=== PATIENT | female | born 2000 | race Caucasian/White ===

== ENCOUNTER 2024-04-03 10:23 | Inpatient (IN) ==
[2024-04-03] MEDS ORDERED: ACETAMINOPHEN 325 MG TAB PO PRN (11:41)
[2024-04-03] MEDS ORDERED: LIDOCAINE 1% LOCAL 20 ML VIAL INFIL PRN (11:41)
[2024-04-03] MEDS ORDERED: OXYTOCIN 30 UNITS/NSS 30 UNITS/500 ML BAG IV PRN (11:41)
[2024-04-03] MEDS ORDERED: CALCIUM CARBONATE 500 MG CHEWABLE TAB PO PRN (11:41)
[2024-04-03 11:51] LABS: Amphetamines+Metham, Urine Neg (Neg); Barbiturates, Urine Neg (Neg); Benzodiazepine, Urine Neg (Neg); Cocaine, Urine Neg (Neg); Fentanyl, Urine Neg (Neg); MDMA (Ecstacy), Urine Neg (Neg); Marijuana, Urine Neg (Neg); Methadone, Urine Neg (Neg); Opiate, Urine Neg (Neg); Phencyclidine, Urine Neg (Neg)
[2024-04-03] MEDS: miSOPROStoL 50 MCG TAB PO ONE ×2 (11:56→16:13)
[2024-04-03 12:42] LABS: Hemoglobin 12.3 g/dl (12.0-16.0); Mean Corpuscular Hemoglobin 28.9 pg (25.0-34.0); Mean Corpuscular Hgb Conc 33.2 g/dL (32.0-36.0); Mean Corpuscular Volume 87.1 fL (80.0-100.0); Mean Platelet Volume 11.1 fL (9.4-12.4); Platelet Count 253 K/uL (130-400); RDW Standard Deviation 51.2 fL (36.4-46.3); Red Blood Count 4.25 M/uL (4.20-5.40); White Blood Count 6.82 K/ul (4.8-10.8)
--- OUTSIDE RECORDS SUMMARY | 2024-04-03 13:27 | External Medical Summary | Summary of Care ---
Author Name Unknown Organization [facility] Address [address] [place] [address] Phone [phone] Care Team Providers Care Leaf Conditioner Helper Name Role Phone Pepper Martinez MD Primary Care Provide r Reason for Visit * Reason Onset Date Comments Advice 04/01/2024 Encounter Details Date Type Department Care Team ([facility] st Contact Info) Description 04/01/2024 Telephone [facility] [address] [place] [address] Deirdre Wong MD [address] [place], [place] [id number] Advice Allergies No known active allergiesdocumented as of this encounter (statuses as of 04/01/2024) Medications Medication Sig Dispensed Refills Start Date End Date Status Promethazine HCl 25 MG Rectal Suppository (Phenergan)Indicati ons:Nausea and vomiting during Administer 1 Suppository into the rectum 2 times a day as needed for Nausea. 12 Each 08/24/2023 Active Additional Information Patient not taking.Reported on 10/16/2023 Cyanocobalamin 1000 MCG Oral Capsule Take 1 Capsule by mouth every evening. 30 Capsule 4 01/10/2024 Active Vitamin B-12 1000 MCG Oral Tablet (Cyanocobalamin) Take 1 Tablet by mouth in the morning. 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 Iron deficiency anemia 01/24/2024 Antepartum anemia complicating 024 Overview: Hgb 10.5 at 28 weeks B12 low and ferrtin low Pt to start PO vitamin B12 and referral for IV iron Rubella non-immune status, antepartum 08/23/2023 Encounter for supervision of normal first in first trimester 08/23/2023 Obesity in , antepartum 08/23/2023 Overview: Pre-gravid BMI 32.81 Early gtt ordered Allergic rhinitis 11/07/2012 Estimated Date of Delivery Comme nts Yes 03/31/2024 Based on Ultraso und documented as of this encounter (statuses as of 04/01/2024) Immunizations Name Administration Dates Next Due DTaP Dipth/Tet/Acell Pertussis (Infanrix), Peds 12/29/2006,01/01/2003,10/30/2002,04/12,2001 HIB PRP-T, 4 Dose, PF, IM (H iberix, ActHib) 01/01/2003,10/30/2002,04/05/2002,11/12 Hepatitis A, Ped/Adol., 18 y ear and below, 2-Dose 01/31/2011,12/29/2006 Hepatitis B, 0-19 yrs 01/31/2011,04/05/2002,11/03 IPV - Polio Virus Vaccine (Inact) 2006,01/01/2003,04/05/2002,11/12 MMR - Measles/Mumps/Rubella Vaccine 10/30/2002 MMR-GEOFF - Measles/Mumps/Rubella/Varicella Vaccine 12/29/2006 Meningococcal Conjugate Vacc ine (Menactra/Menveo) 02/19/2018,11/07/2012 Pneumococcal Conjugate Vacci ne, 7 Valent 01/01/2003,04/05/2002 TDAP (age 10 and older)(Boostrix) 01/09/2024,10/2012 Varicella Vaccine (Chicken Pox) 10/31/2007 documented as of this encounter Social History Tobacco Use Types Packs/Day Years Used Date Smoking Tobacco: Former Cigarettes Smokeless Tobacco: Never Alcohol Use Standard Drinks/Week Comments Not Currently 0 (1 standard drink = 0.6 oz pur e alcohol) PHQ-2 Answer Date Recorded PHQ-2 Score 0 04/08/2018 Hunger Vital Sign Answer Date Recorded Within the past 12 months, y ou worried that your food would run out before you got the money to buy more. Never true 11/13/19 24 Within the past 12 months, t he food you bought just didn't last and you didn't have money to get more. Never true 11/13/2023 [place] Depression Scale Answer Date Recorded [place] Depression Scale Total 0 02/23/2024 The thought of harming myself has occurred to me . Never 02/23/2024 Childcare Answer Date Recorded Do you feel overwhelmed with taking care of a child, family member or friend? No 11/13/2023 Does your family need help f inding childcare? (Household - for ages 0-17 years) Not on file 11/13/2023 Clothing Answer Date Recorded Have you been unable to get clothing when it was really needed? No 11/13/2023 Is your family able to get c lothes or diapers when needed? (Household - for ages 0-17 years) Not on file 11/13/2023 Personal Safety Answer Date Recorded Do you feel unsafe or have concerns for your saf ety? No 11/13/2023 Do you have concerns for you r family's safety? (Household - for ages 0-17 years) Not on file 11/13/2023 Utilities Answer Date Recorded Do you have trouble paying y our heating, water, or electric bill? No 11/13/2023 Is your family able to pay t he heat, water, or electric bill? (Household - for ages 0-17 years) Not on file 11/13/2023 Does your family have access to good internet? (Household - for ages 0-17 years) Not on file 11/13/2023 Employment Status Answer Date Recorded Are you unemployed or without regular income? Ye s 11/13/2023 Does the household have a re gular source of income? (Household - for ages 0-17 years) Not on file 11/13/2023 Social Connections Answer Date Recorded How often do you feel lonely or isolated from th ose around you? Never 11/13/2023 Financial Resource Strain Answer Date R ecorded Do you have any trouble payi ng for your medications, or do you think you might in the future? No 11/13/2023 Does your family have troubl e paying for medicine? (Household - for ages 0-17 years) Not on file 11/13/2023 Transportation Needs Answer Date Record ed READ ONLY Do you have troubl e getting a ride to medical visits or work? Never True 11/13/2023 Does your family have a hard time getting a ride to doctors visits? (Household - for ages 0-17 years) Not on file 11/13/2023 Has lack of transportation k ept you from medical appointments, meetings, work, or from getting things needed for daily living? Check all that apply. (Adult - for ages 18 years and over) Not on file 11/13/2023 Do you (or your family) have trouble finding or paying for a ride (transportation)? (Household - for ages 0-17 years) Not on file 11/13/2023 Housing Stability Answer Date Recorded Do you currently live in a s helter or have no steady place to sleep at night? No 11/13/2023 READ ONLY Do you think you a re at risk of becoming homeless? No 11/13/2023 Does your family worry about paying for your home or becoming homeless? (Household - for ages 0-17 years) Not on file 0 11/13/2023 Are you homeless or worried that you might be in the future? (Adult - for ages 18 years and over) Not on file Are you (or your family) daniel eless or worried that you might be in the future? (Household - for ages 0-17 years) Not on file Food Insecurity Answer Date Recorded Do you need food for this week? No 11/13/2023 Are you able to get enough f ood for your family? (Household - for ages 0-17 years) Not on file 11/13/2023 Does your family need food t his week? (Household - for ages 0-17 years) Not on file 11/13/2023 Do you always have enough fo od for your family? (Household - for ages 0-17 years) Not on file 11/13/2023 Estimated Date of Delivery Comme nts Yes 03/31/2024 Based on Ultraso und Sex and Gender Information Value Date Recorded Sex Assigned at Female 08/15/2023 11:08 AM EDT Gender Identity Female 08/15/2023 11:08 AM EDT Sexual Orientation Straight 08/15/2023 11 :08 AM EDT Job Start Date Occupation Industry Not on file Not on file Not on file documented as of this encounter Miscellaneous Notes * Telephone Encounter - Deirdre Wong MD - 04/01/2024 8:28 PM EDT Attempted to call patient twice to return her triage call. Either the calls were disconnected or sent directly to voicemail. Attempted to leave a voicemail if it was recording. Advised patient to call back to triage or call 911 or report to the nearest hospital if this is a medical emergency. documented in this encounter Plan of Treatment Health Maintenance Due Date Last Done Comments HPV (Gardasil) Vaccine (1 - 3-dose series) 2016 Depression Screening 02/19/2019 02/19/2018 Pap Smear 2022 COVID-19 Vaccine ( season) 2024 Influenza Vaccine (FLU shot) (#1) 2024 Gonorrhea / Chlamydia Screen 08/20/2024 08/21/2023, 09/19/2018 DTap/Tdap Vaccines (7 - Td or Tdap) 01/08/2034 01/09/2024, 11/07/2012, 12/29/2006, Additional history exists Hepatitis B Vaccine Completed 01/31/2011, 04/05/2002, 2001 MENINGOCOCCAL (MENACTRA/MENVEO) Completed 02/19/2018, 11/07/2012 Pneumococcal Vaccine: Pediatrics (0 to 5 Years) and At-Risk Patients (6 to 64 Years) Aged Out No longer eligible based on patient's age to complete this topic documented as of this encounter Medical Devices Not on filedocumented as of this encounter Care Teams Leaf Conditioner Helper Relationship Specialty Start Date End Date Pepper Martinez MD PCP - General Family Medicine 11/07/12 documented as of this encounter
--- NOTE | 2024-04-03 20:57 | History & Physical Report ---
Date of Service April 03, 2024 Assessment & Plan (1) Post-term , 40-42 weeks of gestation: Plan Induction of labor Admission and Anticipated Discharge Date Admission Date: April 03, 2024 History of Present Illness Chief Complaint: post term 40 weeks 3 days Primary Care Provider: Pepper Martinez MD Patient's been followed in the office for care and delivery. Well dated with a first trimester ultrasound. Due dates 03/31/2024. Has no problems. Has been treated for anemia during her . She was admitted at 40 weeks and 3 days gestation for induction. This was due to being postterm. On admission she was found to have a reactive NST monitor strip revealed good variability with accelerations. On admission she had a vertex presentation. Cervix posterior 1 cm. Cervix 20% soft. Position was floating. Allergies Allergy/AdvReac Type Severity Reaction Status Date / Time No Known Allergies Allergy Verified 04/03/24 10:54 Home Medications Medication Instructions Recorded Confirmed Type cyanocobalamin (vitamin B-12) 1,000 mcg PO DAILY 04/01/24 04/03/24 History 1,000 mcg tablet vits no.124-ferrous fum 1 tab PO DAILY 04/01/24 04/03/24 History 27 mg iron-folic acid 800 mcg tablet ( Vitamin) Past Med/Surg History Problem List Post-term , 40-42 weeks of gestation False labor after 37 weeks of gestation without delivery No significant past medical history No significant past surgical history Surgical History History of tonsillectomy and adenoidectomy Social History Smoking Status: Current every day smoker Tobacco Type: E-cigarettes / Vaping Second Hand Exposure: No; Do You Dip or Chew Tobacco: No; Tobacco Cessation Education Requested by Patient: No Hx Alcohol Use: No Hx Substance Use: Yes Last Used Substance Other:: prior to Substance Use Type Other:: at beginning of . See note Preferred Language: Icelandic Communication Ability: Effective Hand Straightener Required: No Beliefs That Will Affect Care: None marital status: Single Current Living Situation: Significant Other Other Information That Helps Us Care for You: No Feels Safe at Home: Yes Safety Concerns: Feels Safe At This Time Physical Exam Physical Exam: Patient is well-developed well-nourished 23-year-old white female alert oriented x 3 cooperative no acute distress. Heart had a regular rhythm S1 and S2 are normal. Lungs are clear to auscultation and percussion. Trachea was midline there is no adenopathy or effusion appreciated. Abdomen revealed a gravid uterus with an estimated weight of approximately 7 pounds. There was no abdominal tenderness. There was no flank tenderness. Pelvic exam revealed a vertex presentation floating. Cervix was posterior 1 cm moderately soft. Cervix was about 20% effaced. There was no calf tenderness. Results & Data Results & Data Vital Signs (Past 12 Hours) Vital Signs Temp Pulse Resp BP 04/03/24 20:28 80 124/60 04/03/24 19:05 36.7 C 93 H 18 122/68 04/03/24 16:08 88 128/70 04/03/24 16:06 18 04/03/24 16:06 36.7 C 18 04/03/24 11:58 83 128/64 04/03/24 11:57 16 04/03/24 11:57 36.7 C 16 04/03/24 10:41 93 H 126/59 L 04/03/24 10:37 36.7 C 18
[2024-04-04] MEDS: DINOPROSTONE 10 MG INSERT PV ONE (09:41)
--- NOTE | 2024-04-04 09:45 | Obstetrical Progress Note ---
Date of Service April 04, 2024 Assessment & Plan (1) Post-term , 40-42 weeks of gestation: Present on Admission?: Yes Plan Induction of labor Cervidil placed PV fo cervical ripening Admission and Anticipated Discharge Date Admission Date: April 03, 2024 Subjective pt seen and examined. Pt denies regular uterine contractions. Physical Exam Constitutional: WD/WN, vitals as above Genitourinary: OB Exam Abdomen: + heart tones (140s, Good variability positive accelerations ) and + vertex Manual OB Exam: + cervical dilation 1 cm, + cervical effacement 60% and + station -2 OB Exam Monitor Tracing: + external FHT monitor used, + external uterine monitor used and + category I Results & Data Vital Signs (Past 12 Hours) Vital Signs Temp Pulse Resp BP Pulse Ox 04/04/24 07:20 20 04/04/24 07:20 36.4 C L 20 04/04/24 07:18 80 123/71 04/04/24 06:01 76 110/54 L 04/04/24 06:00 16 04/04/24 06:00 36.6 C 16 04/04/24 05:58 85 91 04/04/24 05:57 102 H 97 04/04/24 05:52 78 96 04/04/24 05:49 83 93 04/04/24 05:47 78 95 04/04/24 05:42 73 95 04/04/24 05:37 76 94 04/04/24 05:33 79 94 04/04/24 05:32 86 95 04/04/24 05:27 76 94 04/04/24 05:22 85 94 04/04/24 05:21 83 94 04/04/24 05:17 85 95 04/04/24 05:12 94 04/04/24 05:12 86 04/04/24 05:12 90 96 04/04/24 03:00 16 04/04/24 03:00 36.6 C 16 04/04/24 02:31 72 112/57 L 04/03/24 23:22 86 105/53 L 04/03/24 23:00 36.6 C
[2024-04-05] MEDS: LACTATED RINGER'S 1,000 ML IV SCH ×3 (00:34→18:01)
[2024-04-05] MEDS ORDERED: OXYTOCIN 30 UNITS/NSS 30 UNITS/500 ML BAG IV SCH (00:45)
[2024-04-05] MEDS: OXYTOCIN 30 UNITS/NSS 30 UNITS/500 ML BAG IV SCH (00:59)
[2024-04-05] MEDS: OXYTOCIN 30 UNITS/NSS 30 UNITS/500 ML BAG IV PRN (00:59)
--- NOTE | 2024-04-05 03:47 | Obstetrical Progress Note ---
Date of Service April 05, 2024 Assessment & Plan (1) Post-term , 40-42 weeks of gestation: Present on Admission?: Yes Plan Induction of labor Continue Pitocin to augment labor pain meds including epidural as the pt desires Admission and Anticipated Discharge Date Admission Date: April 03, 2024 Subjective pt seen and examined. Pt denies regular uterine contractions. Review of Systems Review of Systems: All systems reviewed & are unremarkable except as noted in HPI & below Constitutional: as per Subjective / HPI Physical Exam Constitutional: WD/WN, vitals as above Genitourinary: no vaginal lesions, no adnexal mass OB Exam Abdomen: + heart tones (140s, Good variability positive accelerations ) and + vertex Manual OB Exam: + cervical dilation 3 cm, + cervical effacement 70% and + station -2 OB Exam Monitor Tracing: + external FHT monitor used, + external uterine monitor used and + category I Results & Data Vital Signs (Past 12 Hours) Vital Signs Temp Pulse Resp BP 04/05/24 03:03 71 94/50 L 04/05/24 02:09 83 115/72 04/05/24 01:02 85 108/53 L 04/04/24 23:00 16 04/04/24 23:00 36.6 C 16 04/04/24 22:29 82 124/53 L 04/04/24 19:00 18 04/04/24 19:00 36.7 C 18 04/04/24 18:53 78 119/71 04/04/24 17:08 86 122/66 04/04/24 17:05 18 04/04/24 17:05 36.7 C 18
[2024-04-05] MEDS: BUTORPHANOL TARTRATE 2 MG/ML VIAL IV ONE ×3 (04:22→17:57)
[2024-04-05] MEDS: PENICILLIN GK 6 MU in DEXTROSE 5% 250 ML IV STA (05:45)
[2024-04-05] MEDS: fentANYL 2 MCG/ML BUPIVacaine 0.125%-NSS 100ML BAG ONE (07:30)
[2024-04-05] MEDS: LIDOCAINE 2%/EPINEPHRINE 1:200,000 20 ML PF ONE (07:44)
[2024-04-05] MEDS: BUPIVACAINE 0.25% PF 30 ML VIAL ONE (07:44)
--- NOTE | 2024-04-05 08:04 | Anesthesiology Consultation ---
Date of Service April 05, 2024 Assessment & Plan Chart Review Chart Review: Acceptable Risk for Labor Epidural Consults Requested none History Height/Weight Height: 4 ft 10 in Weight: 83.461 kg Allergies Allergy/AdvReac Type Severity Reaction Status Date / Time No Known Allergies Allergy Verified 04/03/24 10:54 Medications Home Medications Medication Instructions Recorded Confirmed Last Taken cyanocobalamin (vitamin B-12) 1,000 mcg PO DAILY 04/01/24 04/03/24 04/02/24 14:00 1,000 mcg tablet vits no.124-ferrous fum 1 tab PO DAILY 04/01/24 04/03/24 04/02/24 08:00 27 mg iron-folic acid 800 mcg tablet ( Vitamin) Active Medications Generic Name Dose Route Start Last Admin Trade Name Freq PRN Reason Stop Dose Admin Lactated Ringer's 1,000 mls @ 50 mls/hr 04/04/24 23:15 04/05/24 06:07 Lr IV 04/05/24 23:14 999 mls/hr .Q20H NOEL Infusion Oxytocin 30 units in 500 mls @ 8 mls/hr 04/05/24 00:46 04/05/24 04:56 Pitocin 30 Units/Nss IV 04/07/24 00:45 0.48 units/hr .Q24H PRN 8 mls/hr Labor Induction/Augmentation Titration Protocol 0.48 UNITS/HR Past Surgical History Surgical History History of tonsillectomy and adenoidectomy Social History Smoking Status: Current every day smoker Do You Dip or Chew Tobacco: No Hx Alcohol Use: No Hx Substance Use: Yes substance use type: marijuana Substance Use Type Other:: at beginning of . See note Last Used Substance Other:: prior to Physical Exam Vital Signs Last Vital Signs Temp 36.6 C 04/05/24 06:00 Pulse 77 04/05/24 07:59 Resp 18 04/05/24 06:00 BP 122/55 L 04/05/24 07:59 Pulse Ox 95 04/05/24 07:59 Testing Laboratory Results 04/03/24 11:44 Blood Type O Positive 04/03/24 11:41 Antibody Screen NEGATIVE 04/03/24 11:41
[2024-04-05] MEDS ORDERED: LIDOCAINE 2% MPF LOCAL 5 ML VIAL EPI PRN (08:10)
[2024-04-05] MEDS ORDERED: SODIUM CHLORIDE 0.9% PF INJ 10 ML VIAL EPI PRN (08:10)
[2024-04-05] MEDS ORDERED: NALOXONE HCL 1 MG in SODIUM CHLORIDE 0.9% 1,000 ML IV PRN ×2 (08:10→15:52)
[2024-04-05] MEDS ORDERED: ePHEDrine sulfate 50 MG/ML AMP IV PRN ×2 (08:10→15:52)
[2024-04-05] MEDS ORDERED: BUPIVACAINE 0.25% PF 30 ML VIAL EPI PRN (08:10)
[2024-04-05] MEDS ORDERED: fentANYL 2 MCG/ML BUPIVacaine 0.125%-NSS 100ML BAG EPI PRN (08:10)
[2024-04-05] MEDS ORDERED: ROPIVACAINE 0.5% PF 5 MG/ML 20 ML VIAL EPI PRN (08:10)
[2024-04-05] MEDS ORDERED: fentaNYL citrate PF 100 MCG/2 ML VIAL EPI PRN (08:10)
[2024-04-05] MEDS ORDERED: diphenhydrAMINE 50 MG/ML VIAL IV PRN ×2 (08:10→15:52)
[2024-04-05] MEDS ORDERED: NALOXONE HCL 0.4 MG/1 ML VIAL/CARP IV PRN ×2 (08:10→15:52)
[2024-04-05] MEDS ORDERED: NALBUPHINE HCL INJ 10 MG/ML AMP IV PRN ×2 (08:10→15:52)
--- NOTE | 2024-04-05 08:35 | Obstetrical Progress Note ---
Date of Service April 05, 2024 Assessment & Plan Admission and Anticipated Discharge Date Admission Date: April 03, 2024 Subjective Patient seen and examined. She is a 23-year-old at 40 weeks and 4 days of gestation who was admitted on April 03 for induction of labor for postdates. Rate cervical ripening was completed with Cervidil and Cytotec's. Now she had SROM and and having regular contractions, on IV oxytocin at 8miu/min she is comfortable, denies any pain and wants to rest. I reviewed her medical history and records from office. She had ultrasound at 35 weeks and EFW was 48 percentile, Vital signs stable afebrile, heart rate category 1, Vaginal exam, 4-5 cm, 70%, -2, GBS positive, received first dose of penicillin about 3 hours ago, Plan to place Camacho catheter and continue to monitor closely, penicillin for GBS, All questions were answered. Results & Data Vital Signs (Past 12 Hours) Vital Signs Temp Pulse Resp BP Pulse Ox 04/05/24 08:30 71 110/69 04/05/24 08:29 72 99 04/05/24 08:24 74 99 04/05/24 08:19 75 98 04/05/24 08:14 75 98 04/05/24 08:09 75 108/53 L 99 04/05/24 08:04 80 99 04/05/24 07:59 95 04/05/24 07:59 77 04/05/24 07:59 85 122/55 L 04/05/24 07:56 76 125/58 L 04/05/24 07:54 82 97 04/05/24 07:51 75 103/52 L 04/05/24 07:49 82 97 04/05/24 07:44 79 97 04/05/24 07:39 73 97 04/05/24 07:38 71 121/53 L 04/05/24 07:34 82 97 04/05/24 07:29 82 98 04/05/24 07:24 101 H 99 04/05/24 07:19 81 98 04/05/24 07:15 79 92 04/05/24 07:14 78 97 04/05/24 07:09 80 96 04/05/24 07:04 74 96 04/05/24 06:59 97 04/05/24 06:59 76 04/05/24 06:59 76 94 04/05/24 06:54 79 96 04/05/24 06:22 93 H 98 04/05/24 06:17 77 97 04/05/24 06:12 79 97 04/05/24 06:07 79 97 04/05/24 06:04 81 139/64 04/05/24 06:00 18 04/05/24 06:00 36.6 C 18 04/05/24 05:58 83 145/86 H 04/05/24 05:03 77 147/89 H 04/05/24 04:50 83 124/71 04/05/24 04:03 86 125/83 04/05/24 03:50 75 142/80 H 04/05/24 03:03 71 94/50 L 04/05/24 03:00 18 04/05/24 03:00 36.7 C 18 04/05/24 02:09 83 115/72 04/05/24 01:02 85 108/53 L 04/04/24 23:00 16 04/04/24 23:00 36.6 C 16 04/04/24 22:29 82 124/53 L
[2024-04-05] MEDS: PENICILLIN GK 3 MU in DEXTROSE 5% 100 ML IV PRN (09:48)
--- NOTE | 2024-04-05 10:37 | Obstetrical Progress Note ---
Date of Service April 05, 2024 Assessment & Plan Admission and Anticipated Discharge Date Admission Date: April 03, 2024 Subjective Patient is reevaluated for progress in labor FHR had been categ I, ctxs wee to often and the Pitocin was decreased from 8 to 4 miu/ min by her nurse VE: 6/ 70%/ -2, without ans -1 with contraction FHR had a prolonged decel to 70-90's for about 5min Oxytocin was stopped, IVF bolus and nasal O2 started FSE ise placed and recovered to 100-110 and 120's, now at 130's Continue to monitor closely Results & Data Vital Signs (Past 12 Hours) Vital Signs Temp Pulse Resp BP Pulse Ox 04/05/24 10:30 68 130/70 04/05/24 10:29 69 100 04/05/24 10:24 79 100 04/05/24 10:19 79 97 04/05/24 10:15 83 135/74 04/05/24 10:14 79 96 04/05/24 10:09 78 97 04/05/24 10:04 74 97 04/05/24 10:00 68 143/84 H 04/05/24 09:59 77 97 04/05/24 09:54 75 98 04/05/24 09:49 71 98 04/05/24 09:45 74 132/77 04/05/24 09:44 75 98 04/05/24 09:39 70 97 04/05/24 09:34 75 96 04/05/24 09:30 78 129/73 04/05/24 09:29 76 95 04/05/24 09:28 75 94 04/05/24 09:24 75 95 04/05/24 09:19 74 96 04/05/24 09:15 71 125/69 04/05/24 09:14 75 96 04/05/24 09:09 75 96 04/05/24 09:04 76 96 04/05/24 09:01 36.6 C 73 18 122/67 04/05/24 08:59 82 97 04/05/24 08:54 73 97 04/05/24 08:49 74 97 04/05/24 08:45 78 116/60 04/05/24 08:44 81 97 04/05/24 08:39 70 98 04/05/24 08:34 73 96 04/05/24 08:30 71 110/69 04/05/24 08:29 72 99 04/05/24 08:24 74 99 04/05/24 08:19 75 98 04/05/24 08:14 75 98 04/05/24 08:09 75 108/53 L 99 04/05/24 08:04 80 99 04/05/24 07:59 95 04/05/24 07:59 77 04/05/24 07:59 85 122/55 L 04/05/24 07:56 76 125/58 L 04/05/24 07:54 82 97 04/05/24 07:51 75 103/52 L 04/05/24 07:49 82 97 04/05/24 07:44 79 97 04/05/24 07:39 73 97 04/05/24 07:38 36.3 C L 71 16 121/53 L 04/05/24 07:34 82 97 04/05/24 07:29 82 98 04/05/24 07:24 101 H 99 04/05/24 07:19 81 98 04/05/24 07:15 79 92 04/05/24 07:14 78 97 04/05/24 07:09 80 96 04/05/24 07:04 74 96 04/05/24 06:59 97 04/05/24 06:59 76 04/05/24 06:59 76 94 04/05/24 06:54 79 96 04/05/24 06:22 93 H 98 04/05/24 06:17 77 97 04/05/24 06:12 79 97 04/05/24 06:07 79 97 04/05/24 06:04 81 139/64 04/05/24 06:00 18 04/05/24 06:00 36.6 C 18 04/05/24 05:58 83 145/86 H 04/05/24 05:03 77 147/89 H 04/05/24 04:50 83 124/71 04/05/24 04:03 86 125/83 04/05/24 03:50 75 142/80 H 04/05/24 03:03 71 94/50 L 04/05/24 03:00 18 04/05/24 03:00 36.7 C 18 04/05/24 02:09 83 115/72 04/05/24 01:02 85 108/53 L 04/04/24 23:00 16 04/04/24 23:00 36.6 C 16
--- NOTE | 2024-04-05 14:17 | Obstetrical Progress Note ---
Date of Service April 05, 2024 Assessment & Plan Admission and Anticipated Discharge Date Admission Date: April 03, 2024 Subjective Patient is reevaluated. She has been resting has no complaints. After heart rate decelerations at 10:30 AM Pitocin was stopped. heart rate was category 1 for a while and then Pitocin was restarted and increased to 4 minutes initiated per minute. heart rate had another episode of late deceleration and it was stopped. It had been between category 1 to category 2. VE: unchanged, cervix is 6 cm dilated, 80% effaced, head is still high at -1, discussed the findings and recommended primary delivery due to ongoing intolerance to oxytocin and arrest of dilatation active phase of labor. Patient desires to talk to her mom and her partner and make a decision. heart rate is now 130s with minimal to moderate variability. Continue to monitor closely Results & Data Vital Signs (Past 12 Hours) Vital Signs Temp Pulse Resp BP Pulse Ox 04/05/24 14:09 76 97 04/05/24 14:04 86 95 04/05/24 14:00 80 115/65 04/05/24 13:59 77 96 04/05/24 13:54 78 95 04/05/24 13:49 79 96 04/05/24 13:44 78 113/58 L 96 04/05/24 13:39 78 96 04/05/24 13:34 76 96 04/05/24 13:30 80 129/68 04/05/24 13:29 75 96 04/05/24 13:24 82 96 04/05/24 13:22 18 04/05/24 13:22 36.8 C 18 04/05/24 13:19 97 H 97 04/05/24 13:17 83 102/55 L 04/05/24 13:15 77 103/55 L 04/05/24 13:14 76 96 04/05/24 13:09 72 96 04/05/24 13:04 74 96 04/05/24 13:00 71 121/56 L 04/05/24 12:59 71 98 04/05/24 12:54 71 97 04/05/24 12:49 75 97 04/05/24 12:45 71 114/63 04/05/24 12:44 71 97 04/05/24 12:39 80 97 04/05/24 12:34 81 96 04/05/24 12:29 85 120/63 96 04/05/24 12:24 83 95 04/05/24 12:19 85 97 04/05/24 12:16 80 111/64 04/05/24 12:14 85 97 04/05/24 12:09 82 98 04/05/24 12:04 78 97 04/05/24 12:00 78 123/73 04/05/24 11:59 87 98 04/05/24 11:54 96 H 98 04/05/24 11:49 82 97 04/05/24 11:45 85 115/73 04/05/24 11:44 82 97 04/05/24 11:39 80 97 04/05/24 11:34 97 H 97 04/05/24 11:29 85 98 04/05/24 11:24 81 96 04/05/24 11:19 73 97 04/05/24 11:16 78 136/76 04/05/24 11:14 87 98 04/05/24 11:09 79 97 04/05/24 11:04 78 98 04/05/24 11:01 36.7 C 78 18 111/73 04/05/24 11:00 16 04/05/24 11:00 36.7 C 16 04/05/24 10:59 81 98 04/05/24 10:54 94 H 97 04/05/24 10:49 73 98 04/05/24 10:45 71 133/80 04/05/24 10:44 77 98 04/05/24 10:39 80 99 04/05/24 10:34 72 100 04/05/24 10:30 68 130/70 04/05/24 10:29 69 100 04/05/24 10:24 79 100 04/05/24 10:19 79 97 04/05/24 10:15 83 135/74 04/05/24 10:14 79 96 04/05/24 10:09 78 97 04/05/24 10:04 74 97 04/05/24 10:00 68 143/84 H 04/05/24 09:59 77 97 04/05/24 09:54 75 98 04/05/24 09:49 71 98 04/05/24 09:45 74 132/77 04/05/24 09:44 75 98 04/05/24 09:39 70 97 04/05/24 09:34 75 96 04/05/24 09:30 78 129/73 04/05/24 09:29 76 95 04/05/24 09:28 75 94 04/05/24 09:24 75 95 04/05/24 09:19 74 96 04/05/24 09:15 71 125/69 04/05/24 09:14 75 96 04/05/24 09:09 75 96 04/05/24 09:04 76 96 04/05/24 09:01 36.6 C 73 18 122/67 04/05/24 08:59 82 97 04/05/24 08:54 73 97 04/05/24 08:49 74 97 04/05/24 08:45 78 116/60 04/05/24 08:44 81 97 04/05/24 08:39 70 98 04/05/24 08:34 73 96 04/05/24 08:30 71 110/69 04/05/24 08:29 72 99 04/05/24 08:24 74 99 04/05/24 08:19 75 98 04/05/24 08:14 75 98 04/05/24 08:09 75 108/53 L 99 04/05/24 08:04 80 99 04/05/24 07:59 95 04/05/24 07:59 77 04/05/24 07:59 85 122/55 L 04/05/24 07:56 76 125/58 L 04/05/24 07:54 82 97 04/05/24 07:51 75 103/52 L 04/05/24 07:49 82 97 04/05/24 07:44 79 97 04/05/24 07:39 73 97 04/05/24 07:38 36.3 C L 71 16 121/53 L 04/05/24 07:34 82 97 04/05/24 07:29 82 98 04/05/24 07:24 101 H 99 04/05/24 07:19 81 98 04/05/24 07:15 79 92 04/05/24 07:14 78 97 04/05/24 07:09 80 96 04/05/24 07:04 74 96 04/05/24 06:59 97 04/05/24 06:59 76 11/01/24 06:59 76 94 04/05/24 06:54 79 96 04/05/24 06:22 93 H 98 04/05/24 06:17 77 97 04/05/24 06:12 79 97 04/05/24 06:07 79 97 04/05/24 06:04 81 139/64 04/05/24 06:00 18 04/05/24 06:00 36.6 C 18 04/05/24 05:58 83 145/86 H 04/05/24 05:03 77 147/89 H 04/05/24 04:50 83 124/71 04/05/24 04:03 86 125/83 04/05/24 03:50 75 142/80 H 04/05/24 03:03 71 94/50 L 04/05/24 03:00 18 04/05/24 03:00 36.7 C 18
--- NOTE | 2024-04-05 14:47 | Obstetrical Progress Note ---
Date of Service April 05, 2024 Assessment & Plan Admission and Anticipated Discharge Date Admission Date: April 03, 2024 Subjective Patient decided for Csection. Patient understands C section is a major surgery, with risks including but not limited to bleeding , infection, injury to surrounding organs like bowels, bladder, ureters, adhesions, scarring, wound infection, blood cloths in legs/ lungs, longer recovery. All questions were answered. She signed an informed consent. Results & Data Vital Signs (Past 12 Hours) Vital Signs Temp Pulse Resp BP Pulse Ox 04/05/24 14:44 97 H 97 04/05/24 14:39 98 H 98 04/05/24 14:34 104 H 97 04/05/24 14:30 96 H 138/77 04/05/24 14:29 97 H 97 04/05/24 14:24 94 H 97 04/05/24 14:19 97 H 98 04/05/24 14:16 107 H 134/75 04/05/24 14:14 91 H 98 04/05/24 14:09 76 97 04/05/24 14:04 86 95 04/05/24 14:00 80 115/65 04/05/24 13:59 77 96 04/05/24 13:54 78 95 04/05/24 13:49 79 96 04/05/24 13:44 78 113/58 L 96 04/05/24 13:39 78 96 04/05/24 13:34 76 96 04/05/24 13:30 80 129/68 04/05/24 13:29 75 96 04/05/24 13:24 82 96 04/05/24 13:22 18 04/05/24 13:22 36.8 C 18 04/05/24 13:19 97 H 97 04/05/24 13:17 83 102/55 L 04/05/24 13:15 77 103/55 L 04/05/24 13:14 76 96 04/05/24 13:09 72 96 04/05/24 13:04 74 96 04/05/24 13:00 71 121/56 L 04/05/24 12:59 71 98 04/05/24 12:54 71 97 04/05/24 12:49 75 97 04/05/24 12:45 71 114/63 04/05/24 12:44 71 97 04/05/24 12:39 80 97 04/05/24 12:34 81 96 04/05/24 12:29 85 120/63 96 04/05/24 12:24 83 95 04/05/24 12:19 85 97 04/05/24 12:16 80 111/64 04/05/24 12:14 85 97 04/05/24 12:09 82 98 04/05/24 12:04 78 97 04/05/24 12:00 78 123/73 04/05/24 11:59 87 98 04/05/24 11:54 96 H 98 04/05/24 11:49 82 97 04/05/24 11:45 85 115/73 04/05/24 11:44 82 97 04/05/24 11:39 80 97 04/05/24 11:34 97 H 97 04/05/24 11:29 85 98 04/05/24 11:24 81 96 04/05/24 11:19 73 97 04/05/24 11:16 78 136/76 04/05/24 11:14 87 98 04/05/24 11:09 79 97 04/05/24 11:04 78 98 04/05/24 11:01 36.7 C 78 18 111/73 04/05/24 11:00 16 04/05/24 11:00 36.7 C 16 04/05/24 10:59 81 98 04/05/24 10:54 94 H 97 04/05/24 10:49 73 98 04/05/24 10:45 71 133/80 04/05/24 10:44 77 98 04/05/24 10:39 80 99 04/05/24 10:34 72 100 04/05/24 10:30 68 130/70 04/05/24 10:29 69 100 04/05/24 10:24 79 100 04/05/24 10:19 79 97 04/05/24 10:15 83 135/74 04/05/24 10:14 79 96 04/05/24 10:09 78 97 04/05/24 10:04 74 97 04/05/24 10:00 68 143/84 H 04/05/24 09:59 77 97 04/05/24 09:54 75 98 04/05/24 09:49 71 98 04/05/24 09:45 74 132/77 04/05/24 09:44 75 98 04/05/24 09:39 70 97 04/05/24 09:34 75 96 04/05/24 09:30 78 129/73 04/05/24 09:29 76 95 04/05/24 09:28 75 94 04/05/24 09:24 75 95 04/05/24 09:19 74 96 04/05/24 09:15 71 125/69 04/05/24 09:14 75 96 04/05/24 09:09 75 96 04/05/24 09:04 76 96 04/05/24 09:01 36.6 C 73 18 122/67 04/05/24 08:59 82 97 04/05/24 08:54 73 97 04/05/24 08:49 74 97 04/05/24 08:45 78 116/60 04/05/24 08:44 81 97 04/05/24 08:39 70 98 04/05/24 08:34 73 96 04/05/24 08:30 71 110/69 04/05/24 08:29 72 99 04/05/24 08:24 74 99 04/05/24 08:19 75 98 04/05/24 08:14 75 98 04/05/24 08:09 75 108/53 L 99 04/05/24 08:04 80 99 04/05/24 07:59 95 04/05/24 07:59 77 04/05/24 07:59 85 122/55 L 04/05/24 07:56 76 125/58 L 04/05/24 07:54 82 97 04/05/24 07:51 75 103/52 L 04/05/24 07:49 82 97 04/05/24 07:44 79 97 04/05/24 07:39 73 97 04/05/24 07:38 36.3 C L 71 16 121/53 L 04/05/24 07:34 82 97 04/05/24 07:29 82 98 04/05/24 07:24 101 H 99 04/05/24 07:19 81 98 04/05/24 07:15 79 92 04/05/24 07:14 78 97 04/05/24 07:09 80 96 04/05/24 07:04 74 96 04/05/24 06:59 97 04/05/24 06:59 76 04/05/24 06:59 76 94 04/05/24 06:54 79 96 04/05/24 06:22 93 H 98 04/05/24 06:17 77 97 04/05/24 06:12 79 97 04/05/24 06:07 79 97 04/05/24 06:04 81 139/64 04/05/24 06:00 18 04/05/24 06:00 36.6 C 18 04/05/24 05:58 83 145/86 H 04/05/24 05:03 77 147/89 H 04/05/24 04:50 83 124/71 04/05/24 04:03 86 125/83 04/05/24 03:50 75 142/80 H 04/05/24 03:03 71 94/50 L 04/05/24 03:00 18 04/05/24 03:00 36.7 C 18
[2024-04-05 15:10] LABS: Basophils # (auto) 0.02 K/uL (0.00-0.20); Basophils % (auto) 0.2 %; Immature Granulocytes # (auto) 0.03 K/uL (0.01-0.20); Immature Granulocytes % (auto) 0.2 %; Lymphocytes # (auto) 1.43 K/uL (1.20-3.40); Lymphocytes % (auto) 11.3 %; Mean Corpuscular Hemoglobin 28.9 pg (25.0-34.0); Mean Corpuscular Hgb Conc 33.3 g/dL (32.0-36.0); Mean Corpuscular Volume 86.7 fL (80.0-100.0); Mean Platelet Volume 11.1 fL (9.4-12.4); Monocytes # (auto) 0.78 K/uL (0.11-0.59); Monocytes % (auto) 6.2 %; Neutrophils # (auto) 10.36 K/uL (1.40-6.50); Neutrophils % (auto) 82.1 %; Platelet Count 255 K/uL (130-400); RDW Coefficient of Variation 15.8 % (11.5-14.5); White Blood Count 12.62 K/ul (4.8-10.8)
[2024-04-05] MEDS: ACETAMINOPHEN 500 MG TAB PO SCH (15:15)
[2024-04-05] MEDS: CITRIC ACID/SODIUM CITRATE 15 ML UDC ONE (15:16)
[2024-04-05] MEDS ORDERED: LACTATED RINGER'S 1,000 ML IV SCH (15:30)
[2024-04-05] MEDS ORDERED: MoRPHine SULFATE PF 1 MG/ML 10 ML AMP/VIAL ONE (15:37)
[2024-04-05] MEDS: ceFAZolin 2000MG 2,000 MG/15 ML SYR IV SCH (15:43)
[2024-04-05] MEDS: AZITHROMYCIN 500 MG in DEXTROSE 5% 250 ML IV SCH (15:46)
[2024-04-05] MEDS ORDERED: NALOXONE HCL 0.08 MG in SYRINGE 1.8 ML IV PRN (15:52)
[2024-04-05] MEDS ORDERED: METOCLOPRAMIDE HCL 10 MG in SODIUM CHLORIDE 0.9% 50 ML IV PRN (15:52)
[2024-04-05] MEDS ORDERED: MEPERIDINE HCL 25 MG/ML CARP/VIAL IV PRN (15:52)
[2024-04-05] MEDS ORDERED: oxyCODONE HCL IR 5 MG TAB (IMMEDIATE RELEASE) PO PRN (15:52)
[2024-04-05] MEDS ORDERED: DROPERIDOL 5 MG/2 ML VIAL IV PRN (15:52)
[2024-04-05] MEDS ORDERED: PROMETHAZINE 6.25 MG/50.25 ML BAG IV PRN (15:52)
[2024-04-05] MEDS ORDERED: MoRPHine SULFATE 2 MG/ML CARP IV PRN (15:52)
[2024-04-05] MEDS ORDERED: HYDROmorphone INJ 0.5 MG/0.5 ML SYR IV PRN (15:52)
[2024-04-05] MEDS ORDERED: ONDANSETRON INJ 2 MG/ML 2 ML VIAL IV PRN (15:52)
[2024-04-05] MEDS ORDERED: DC INTRASPINAL MORPHINE SCH (16:00)
[2024-04-05] MEDS ORDERED: NO NARCOTICS OR SEDATIVES SCH (16:00)
[2024-04-05] MEDS ORDERED: fentaNYL citrate PF 100 MCG/2 ML VIAL ONE (16:23)
[2024-04-05] MEDS ORDERED: VASOPRESSIN 20 UNIT/ML VIAL ONE (16:29)
[2024-04-05] MEDS ORDERED: OXYTOCIN 10 UNITS/ML VIAL ONE (16:49)
[2024-04-05] MEDS ORDERED: ONDANSETRON INJ 2 MG/ML 2 ML VIAL ONE (16:52)
[2024-04-05] MEDS: GELATIN SPONGE SZ 100 ONE (17:00)
[2024-04-05] MEDS ORDERED: PHENYLEPHRINE 100MCG/ML 5ML SYR ONE (17:07)
[2024-04-05] MEDS ORDERED: SENNA 8.6 MG TAB PO PRN (17:13)
[2024-04-05] MEDS ORDERED: PROMETHAZINE 12.5 MG/50.5 ML BAG IV PRN (17:13)
[2024-04-05] MEDS ORDERED: HYDROCORTISONE ACETATE 25 MG SUPP PR PRN (17:13)
[2024-04-05] MEDS ORDERED: CALCIUM CARBONATE 500 MG CHEWABLE TAB PO PRN (17:13)
[2024-04-05] MEDS ORDERED: BENZOCAINE 20% SPRY 85 APPLN/85 GM CAN EXT PRN (17:13)
[2024-04-05] MEDS ORDERED: MAGNESIUM HYDROXIDE SUSP 30 ML UDC PO PRN (17:13)
--- NOTE | 2024-04-05 17:21 | Operative Report ---
Post Operative Report Pre & Post Diagnosis Operation Date: 04/05/24 14:50 Pre-Op Diagnosis: INDUCTION 23-year-old G1, P0 at 40 weeks and 4 days of gestation who was admitted for induction of labor for postdates on April 03, arrest of dilatation active phase of labor, category 2 strip Post-Op Diagnosis: INDUCTION same, direct OP presentation I identified the patient and participated in the time-out.: Yes Procedure Operation Date: 04/05/24 14:50 Actual Procedures p Section in LD with delivery of viable female at 1621 - Meseret Reid MD Surgeon Meseret Reid MD Director Of Therapy Services Dr Box Quantitative Blood Loss (QBL) 725 Findings Consistent with Post-Op Diagnosis Baby was a viable female infant, delivered at 1620 1 PM and cephalic presentation, direct occiput posterior, Apgars 7/9, weight is 35 5 0 g, Maternal findings normal uterus fallopian tubes and ovaries Specimens placenta Drains Camacho catheter drained 100 mL of clear urine Anesthesia Type Labor Epidural Complications none Disposition Accompanied Patient To Recovery: Yes Indications patient is a 23-year-old G1, P0 at 40 weeks and 4 days of gestation who was admitted 2 days ago for induction of labor for postdates, received cervical ripening with Cervidil's and p.o. Cytotec's, intolerance to to labor with category 2 strip when oxytocin is increased, arrest of dilatation active phase of labor, remote from delivery. Description of Procedure Patient was taken to operating room where a spinal anesthesia was given without difficulty. She was placed in dorsal supine position with a leftward tilt. She was prepared and draped in usual sterile fashion. A financial skin incision was made and carried through to the underlying layer of fascia with the Bovie. Fascia was incised in the midline and incision was extended laterally with the help of Jarquin scissors. Then the upper aspect of the fascial incision was grasped with 2 Kristopher clamps elevated the underlying rectus muscles were dissected off sharply with Jarquin scissors. Same thing was done on the lower incision. Then the muscles were in the midline, peritoneum was identified grasped with 2 pickups and entered sharply with Metzenbaum scissors. Peritoneal incision was extended superior and inferiorly with good visualization of the bladder. The bladder blade was inserted. Vesicouterine peritoneum was identified, grasped with pickups and entered sharply with Metzenbaum scissors, bladder flap was created digitally and bladder blade was reinserted. Uterus was incised in transverse fashion, incision was extended laterally, membranes were ruptured and clear fluid was obtained. Baby's head was in direct occiput posterior position, brought to the incision, delivered without difficulty, followed by shoulders and body with minimal traction without difficulty. Mouth and nose were suctioned there was dried , then the infant was handed off to the pediatric team. Then the placenta was delivered manually as intact and complete. Uterus was externalized and cleared of all clots and debris's. Uterine incision was repaired with 0 Vicryl in a running locked fashion, second umbricating layer was placed with the same suture in running locked fashion. Excellent hemostasis achieved. Cul-de-sac and the pelvis was irrigated with warm normal saline and suctioned. Incision was checked of anesthetic again. Uterus was returned to the abdomen, parietal peritoneum was reapproximated with 3-0 Vicryl in a running fashion and the muscles were reapproximated in the same suture in a running fashion. All of the fascia and rectus muscles were hemostatic. Rectus fascia was reapproximated with 0 Vicryl starting from both columns meeting in the midline. Subcuticular fat tissue was brought together with 2-0 Vicryl in a running fashion, skin was closed with 4-0 Monocryl in a subcuticular cuticular fashion. The mom and baby tolerated procedure well. Sponge needle instrument count was correct x3. she was given 2 g of cefazolin before surgery. 500 mg of azithromycin during surgery. No complications happened, I was present during whole procedure. My business development assistant was needed for retraction, hemostasis and aid during delivery of I attest to the content of the Intraoperative Record and any orders documented therein. Any exceptions are noted below.
[2024-04-05] MEDS: KETOROLAC 30 MG/ML VIAL ONE (17:40)
[2024-04-05] MEDS: ePHEDrine sulfate 50 MG/ML AMP ONE (17:55)
[2024-04-05] MEDS: fentaNYL citrate PF 100 MCG/2 ML VIAL ONE (17:56)
[2024-04-05] MEDS: SODIUM CHLORIDE 0.9% PF INJ 10 ML VIAL ONE (17:56)
[2024-04-05] MEDS: fentaNYL citrate PF 100 MCG/2 ML VIAL EPI STA (17:57)
[2024-04-05] MEDS: BUPIVACAINE 0.25% PF 30 ML VIAL EPI STA (17:57)
[2024-04-05] MEDS: LIDOCAINE 2%/EPINEPHRINE 1:200,000 20 ML PF EPI STA (17:58)
[2024-04-05] MEDS: SODIUM CHLORIDE 0.9% PF INJ 10 ML VIAL EPI STA (17:58)
[2024-04-05] MEDS: MoRPHine SULFATE PF 1 MG/ML 10 ML AMP/VIAL INT SPINAL ONE (17:59)
[2024-04-05] MEDS: DIPHTHER/TETAN/PERTUS Vaccine (Tdap, Adol/Adult) 0.5mL IM ONE (17:59)
[2024-04-05] MEDS: METHYLERGONOVINE MALEATE 0.2 MG/ML AMP IM STA (19:35)
[2024-04-05] MEDS: METHYLERGONOVINE MALEATE 0.2 MG TAB PO SCH (20:07)
[2024-04-05] MEDS: OXYTOCIN 20 UNITS/LR 1,002 ML IV SCH (20:20)
[2024-04-05] MEDS: SIMETHICONE 80 MG CHEW PO SCH (20:55)
[2024-04-05] MEDS: DOCUSATE SODIUM 100 MG CAP PO SCH (20:55)
--- NOTE | 2024-04-05 22:34 | Anesthesiology Progress Note ---
Date of Service April 05, 2024 Anesthesia Post Procedure Vital Signs Vital Signs: Temp Pulse Pulse Resp BP BP Pulse Ox 04/05/24 20:03 36.7 C 88 16 130/79 95 04/05/24 19:44 89 96 04/05/24 19:39 100 H 93 04/05/24 19:34 88 94 04/05/24 19:29 90 95 04/05/24 19:25 90 111/65 04/05/24 19:24 90 96 04/05/24 19:19 88 95 04/05/24 19:14 99 H 96 04/05/24 19:09 92 H 95 04/05/24 19:04 94 H 95 04/05/24 18:59 98 H 94 04/05/24 18:55 88 108/66 04/05/24 18:54 93 H 95 04/05/24 18:49 91 H 96 04/05/24 18:44 87 96 04/05/24 18:39 89 96 04/05/24 18:34 82 95 04/05/24 18:29 99 H 96 04/05/24 18:25 81 121/60 04/05/24 18:24 87 96 04/05/24 18:23 81 94 04/05/24 18:19 86 97 04/05/24 18:18 84 120/63 94 04/05/24 18:14 79 96 04/05/24 18:12 85 94 04/05/24 18:09 90 96 04/05/24 18:04 76 96 04/05/24 18:02 80 124/67 04/05/24 17:59 81 96 04/05/24 17:57 83 94 04/05/24 17:54 77 95 04/05/24 17:49 89 96 04/05/24 17:47 76 125/69 04/05/24 17:44 77 97 04/05/24 17:39 80 96 04/05/24 17:34 81 119/59 L 96 04/05/24 17:29 97 H 94 04/05/24 17:24 89 97 04/05/24 17:21 88 127/60 04/05/24 15:39 112 H 98 04/05/24 15:34 103 H 96 04/05/24 15:30 91 H 129/67 04/05/24 15:29 101 H 98 04/05/24 15:24 106 H 97 04/05/24 15:19 103 H 97 04/05/24 15:14 101 H 120/65 97 04/05/24 15:09 88 97 04/05/24 15:07 36.6 C 88 16 118/69 04/05/24 15:04 106 H 97 04/05/24 14:59 96 H 116/70 97 04/05/24 14:54 95 H 96 04/05/24 14:49 87 97 04/05/24 14:44 97 H 97 04/05/24 14:39 98 H 98 04/05/24 14:34 104 H 97 04/05/24 14:30 96 H 138/77 04/05/24 14:29 97 H 97 04/05/24 14:24 94 H 97 04/05/24 14:19 97 H 98 04/05/24 14:16 107 H 134/75 04/05/24 14:14 91 H 98 04/05/24 14:09 76 97 04/05/24 14:04 86 95 04/05/24 14:00 80 115/65 04/05/24 13:59 77 96 04/05/24 13:54 78 95 04/05/24 13:49 79 96 04/05/24 13:44 78 113/58 L 96 04/05/24 13:39 78 96 04/05/24 13:34 76 96 04/05/24 13:30 80 129/68 04/05/24 13:29 75 96 04/05/24 13:24 82 96 04/05/24 13:22 18 04/05/24 13:22 36.8 C 18 04/05/24 13:19 97 H 97 04/05/24 13:17 83 102/55 L 04/05/24 13:15 77 103/55 L 04/05/24 13:14 76 96 04/05/24 13:09 72 96 04/05/24 13:04 74 96 04/05/24 13:00 71 121/56 L 04/05/24 12:59 71 98 04/05/24 12:54 71 97 04/05/24 12:49 75 97 04/05/24 12:45 71 114/63 04/05/24 12:44 71 97 04/05/24 12:39 80 97 04/05/24 12:34 81 96 04/05/24 12:29 85 120/63 96 04/05/24 12:24 83 95 04/05/24 12:19 85 97 04/05/24 12:16 80 111/64 04/05/24 12:14 85 97 04/05/24 12:09 82 98 04/05/24 12:04 78 97 04/05/24 12:00 78 123/73 04/05/24 11:59 87 98 04/05/24 11:54 96 H 98 04/05/24 11:49 82 97 04/05/24 11:45 85 115/73 04/05/24 11:44 82 97 04/05/24 11:39 80 97 04/05/24 11:34 97 H 97 04/05/24 11:29 85 98 04/05/24 11:24 81 96 04/05/24 11:19 73 97 04/05/24 11:16 78 136/76 04/05/24 11:14 87 98 04/05/24 11:09 79 97 04/05/24 11:04 78 98 04/05/24 11:01 36.7 C 78 18 111/73 04/05/24 11:00 16 04/05/24 11:00 36.7 C 16 04/05/24 10:59 81 98 04/05/24 10:54 94 H 97 04/05/24 10:49 73 98 04/05/24 10:45 71 133/80 04/05/24 10:44 77 98 04/05/24 10:39 80 99 04/05/24 10:34 72 100 04/05/24 10:30 68 130/70 04/05/24 10:29 69 100 04/05/24 10:24 79 100 04/05/24 10:19 79 97 04/05/24 10:15 83 135/74 04/05/24 10:14 79 96 04/05/24 10:09 78 97 04/05/24 10:04 74 97 04/05/24 10:00 68 143/84 H 04/05/24 09:59 77 97 04/05/24 09:54 75 98 04/05/24 09:49 71 98 04/05/24 09:45 74 132/77 04/05/24 09:44 75 98 04/05/24 09:39 70 97 04/05/24 09:34 75 96 04/05/24 09:30 78 129/73 04/05/24 09:29 76 95 04/05/24 09:28 75 94 04/05/24 09:24 75 95 04/05/24 09:19 74 96 04/05/24 09:15 71 125/69 04/05/24 09:14 75 96 04/05/24 09:09 75 96 04/05/24 09:04 76 96 04/05/24 09:01 36.6 C 73 18 122/67 04/05/24 08:59 82 97 04/05/24 08:54 73 97 04/05/24 08:49 74 97 04/05/24 08:45 78 116/60 04/05/24 08:44 81 97 04/05/24 08:39 70 98 04/05/24 08:34 73 96 04/05/24 08:30 71 110/69 04/05/24 08:29 72 99 04/05/24 08:24 74 99 04/05/24 08:19 75 98 04/05/24 08:14 75 98 04/05/24 08:09 75 108/53 L 99 04/05/24 08:04 80 99 04/05/24 07:59 95 04/05/24 07:59 77 04/05/24 07:59 85 122/55 L 04/05/24 07:56 76 125/58 L 04/05/24 07:54 82 97 04/05/24 07:51 75 103/52 L 04/05/24 07:49 82 97 04/05/24 07:44 79 97 04/05/24 07:39 73 97 04/05/24 07:38 36.3 C L 71 16 121/53 L 04/05/24 07:34 82 97 04/05/24 07:29 82 98 04/05/24 07:24 101 H 99 04/05/24 07:19 81 98 04/05/24 07:15 79 92 04/05/24 07:14 78 97 04/05/24 07:09 80 96 04/05/24 07:04 74 96 04/05/24 06:59 97 04/05/24 06:59 76 11/01/24 06:59 76 94 04/05/24 06:54 79 96 04/05/24 06:22 93 H 98 04/05/24 06:17 77 97 04/05/24 06:12 79 97 04/05/24 06:07 79 97 04/05/24 06:04 81 139/64 04/05/24 06:00 18 04/05/24 06:00 36.6 C 18 04/05/24 05:58 83 145/86 H 04/05/24 05:03 77 147/89 H 04/05/24 04:50 83 124/71 04/05/24 04:03 86 125/83 04/05/24 03:50 75 142/80 H 04/05/24 03:03 71 94/50 L 04/05/24 03:00 18 04/05/24 03:00 36.7 C 18 04/05/24 02:09 83 115/72 04/05/24 01:02 85 108/53 L 04/04/24 23:00 16 04/04/24 23:00 36.6 C 16 O2 Del Method 04/05/24 20:03 Room Air 04/05/24 19:44 04/05/24 19:39 04/05/24 19:34 04/05/24 19:29 04/05/24 19:25 04/05/24 19:24 04/05/24 19:19 04/05/24 19:14 04/05/24 19:09 04/05/24 19:04 04/05/24 18:59 04/05/24 18:55 04/05/24 18:54 04/05/24 18:49 04/05/24 18:44 04/05/24 18:39 04/05/24 18:34 04/05/24 18:29 04/05/24 18:25 04/05/24 18:24 04/05/24 18:23 04/05/24 18:19 04/05/24 18:18 04/05/24 18:14 04/05/24 18:12 04/05/24 18:09 04/05/24 18:04 04/05/24 18:02 04/05/24 17:59 04/05/24 17:57 04/05/24 17:54 04/05/24 17:49 04/05/24 17:47 04/05/24 17:44 04/05/24 17:39 04/05/24 17:34 04/05/24 17:29 04/05/24 17:24 04/05/24 17:21 04/05/24 15:39 04/05/24 15:34 04/05/24 15:30 04/05/24 15:29 04/05/24 15:24 04/05/24 15:19 04/05/24 15:14 04/05/24 15:09 04/05/24 15:07 04/05/24 15:04 04/05/24 14:59 04/05/24 14:54 04/05/24 14:49 04/05/24 14:44 04/05/24 14:39 04/05/24 14:34 04/05/24 14:30 04/05/24 14:29 04/05/24 14:24 04/05/24 14:19 04/05/24 14:16 04/05/24 14:14 04/05/24 14:09 04/05/24 14:04 04/05/24 14:00 04/05/24 13:59 04/05/24 13:54 04/05/24 13:49 04/05/24 13:44 04/05/24 13:39 04/05/24 13:34 04/05/24 13:30 04/05/24 13:29 04/05/24 13:24 04/05/24 13:22 04/05/24 13:22 04/05/24 13:19 04/05/24 13:17 04/05/24 13:15 04/05/24 13:14 04/05/24 13:09 04/05/24 13:04 04/05/24 13:00 04/05/24 12:59 04/05/24 12:54 04/05/24 12:49 04/05/24 12:45 04/05/24 12:44 04/05/24 12:39 04/05/24 12:34 04/05/24 12:29 04/05/24 12:24 04/05/24 12:19 04/05/24 12:16 04/05/24 12:14 04/05/24 12:09 04/05/24 12:04 04/05/24 12:00 04/05/24 11:59 04/05/24 11:54 04/05/24 11:49 04/05/24 11:45 04/05/24 11:44 04/05/24 11:39 04/05/24 11:34 04/05/24 11:29 04/05/24 11:24 04/05/24 11:19 04/05/24 11:16 04/05/24 11:14 04/05/24 11:09 04/05/24 11:04 04/05/24 11:01 04/05/24 11:00 04/05/24 11:00 04/05/24 10:59 04/05/24 10:54 04/05/24 10:49 04/05/24 10:45 04/05/24 10:44 04/05/24 10:39 04/05/24 10:34 04/05/24 10:30 04/05/24 10:29 04/05/24 10:24 04/05/24 10:19 04/05/24 10:15 04/05/24 10:14 04/05/24 10:09 04/05/24 10:04 04/05/24 10:00 04/05/24 09:59 04/05/24 09:54 04/05/24 09:49 04/05/24 09:45 04/05/24 09:44 04/05/24 09:39 04/05/24 09:34 04/05/24 09:30 04/05/24 09:29 04/05/24 09:28 04/05/24 09:24 04/05/24 09:19 04/05/24 09:15 04/05/24 09:14 04/05/24 09:09 04/05/24 09:04 04/05/24 09:01 04/05/24 08:59 04/05/24 08:54 04/05/24 08:49 04/05/24 08:45 04/05/24 08:44 04/05/24 08:39 04/05/24 08:34 04/05/24 08:30 04/05/24 08:29 04/05/24 08:24 04/05/24 08:19 04/05/24 08:14 04/05/24 08:09 04/05/24 08:04 04/05/24 07:59 04/05/24 07:59 04/05/24 07:59 04/05/24 07:56 04/05/24 07:54 04/05/24 07:51 04/05/24 07:49 04/05/24 07:44 04/05/24 07:39 04/05/24 07:38 04/05/24 07:34 04/05/24 07:29 04/05/24 07:24 04/05/24 07:19 04/05/24 07:15 04/05/24 07:14 04/05/24 07:09 04/05/24 07:04 04/05/24 06:59 04/05/24 06:59 04/05/24 06:59 04/05/24 06:54 04/05/24 06:22 04/05/24 06:17 04/05/24 06:12 04/05/24 06:07 04/05/24 06:04 04/05/24 06:00 04/05/24 06:00 04/05/24 05:58 04/05/24 05:03 04/05/24 04:50 04/05/24 04:03 04/05/24 03:50 04/05/24 03:03 04/05/24 03:00 04/05/24 03:00 04/05/24 02:09 04/05/24 01:02 04/04/24 23:00 04/04/24 23:00 Transfer of Care Handoff Completed per policy Notes Mental Status: alert / awake / arousable and participated in evaluation Nausea / Vomiting: adequately controlled Pain: adequately controlled Airway Patency, RR, SpO2: stable & adequate BP & HR: stable & adequate Hydration State: stable & adequate Neuraxial Anesthesia: was administered and sensory block is resolving Anesthetic Complications: no major complications apparent and Pt Satisfied with anesthetic care
--- NOTE | 2024-04-05 22:35 | Anesthesia Procedure Note ---
Date of Service April 05, 2024 Anesthesia Post Epidural Note Vital Signs Vital Signs: Temp Pulse Resp BP Pulse Ox O2 Del Method 36.7 C 88 16 130/79 95 Room Air 04/05/24 20:03 04/05/24 20:03 04/05/24 20:03 04/05/24 20:03 04/05/24 20:03 04/05/24 20:03 Notes Mental Status: alert / awake / arousable Nausea / Vomiting: adequately controlled Pain: adequately controlled Airway Patency, RR, SpO2: stable & adequate BP & HR: stable & adequate Hydration State: stable & adequate Neuraxial Anesthesia: was administered and sensory block is resolving Anesthetic Complications: no major complications apparent and Pt Satisfied with anesthetic care Epidural: Removed without complications and With tip intact
[2024-04-06] MEDS: IBUPROFEN 600 MG TAB PO SCH (00:08)
[2024-04-06] MEDS: ACETAMINOPHEN 325 MG TAB PO SCH (00:08)
[2024-04-06] MEDS: ceFAZolin 2000MG 2,000 MG/15 ML SYR IV ONE (00:08)
[2024-04-06] MEDS ORDERED: CITRIC ACID/SODIUM CITRATE 15 ML UDC PO SCH (06:00)
[2024-04-06 06:58] LABS: Basophils # (auto) 0.03 K/uL (0.00-0.20); Basophils % (auto) 0.3 %; Eosinophils # (auto) 0.02 K/uL (0.00-0.50); Eosinophils % (auto) 0.2 %; Hematocrit (blood only) 35.9 % (37.0-47.0); Hemoglobin 11.9 g/dl (12.0-16.0); Lymphocytes % (auto) 22.1 %; Mean Corpuscular Hemoglobin 28.6 pg (25.0-34.0); Mean Corpuscular Hgb Conc 33.1 g/dL (32.0-36.0); Mean Corpuscular Volume 86.3 fL (80.0-100.0); Mean Platelet Volume 10.8 fL (9.4-12.4); Monocytes # (auto) 0.58 K/uL (0.11-0.59); Monocytes % (auto) 5.8 %; Neutrophils # (auto) 7.02 K/uL (1.40-6.50); Neutrophils % (auto) 70.6 %; Platelet Count 220 K/uL (130-400); RDW Coefficient of Variation 16.1 % (11.5-14.5); RDW Standard Deviation 51.2 fL (36.4-46.3); Red Blood Count 4.16 M/uL (4.20-5.40); White Blood Count 9.95 K/ul (4.8-10.8)
[2024-04-06] MEDS: FERROUS SULFATE 325 MG TAB PO SCH (09:31)
[2024-04-06] MEDS: PRENATAL VITAMIN 1 TAB PO SCH (09:31)
[2024-04-06] MEDS ORDERED: diphenhydrAMINE Capsule 25 MG CAP PO PRN (09:53)
[2024-04-06] MEDS ORDERED: ONDANSETRON INJ 2 MG/ML 2 ML VIAL IV PRN (09:53)
[2024-04-06] MEDS ORDERED: oxyCODONE HCL IR 5 MG TAB (IMMEDIATE RELEASE) PO PRN (09:53)
[2024-04-06] MEDS ORDERED: HYDROmorphone INJ 0.5 MG/0.5 ML SYR IV PRN (09:53)
[2024-04-06] MEDS ORDERED: diphenhydrAMINE 50 MG/ML VIAL IV PRN (09:53)
--- NOTE | 2024-04-06 10:34 | Obstetrical Progress Note ---
Date of Service April 06, 2024 Assessment & Plan Admission and Anticipated Discharge Date Admission Date: April 03, 2024 OB Progress Note abdomen soft and non tender bowel sounds normal passing gas no calf tenderness ambulating well bandage dry luis dressing in place vaginal bleeding scant hgb 11.9 Results & Data Vital Signs (Past 12 Hours) Vital Signs Temp Pulse Resp BP BP Pulse Ox O2 Del Method 04/06/24 07:50 16 97 04/06/24 07:50 36.8 C 89 16 115/70 97 Room Air 04/06/24 03:03 36.8 C 84 16 105/67 98 Room Air 04/05/24 23:25 37.2 C 99 H 18 127/80 98 Room Air
[2024-04-06] MEDS ORDERED: Nursing to Pharmacy Communication SCH (18:15)
[2024-04-06] MEDS: MEASLES, MUMPS & RUBELLA VIRUS VACCINE (MMR) 0.5ML VIAL SQ ONE (19:24)
[2024-04-06] MEDS: bisacodyL 5 MG TABEC PO SCH (20:33)
[2024-04-07] MEDS: IBUPROFEN 600 MG TAB PO PRN (01:17)
[2024-04-07 06:50] LABS: Hematocrit (blood only) 37.7 % (37.0-47.0); Hemoglobin 12.2 g/dl (12.0-16.0)
[2024-04-07 07:27] VITALS: RESP 16; TEMP 98.1; O2SAT 98
--- NOTE | 2024-04-07 08:32 | Obstetrical Progress Note ---
Date of Service April 07, 2024 Assessment & Plan Admission and Anticipated Discharge Date Admission Date: April 03, 2024 OB Progress Note abdomen soft and non tender good bowel sounds bandage is dry no calf tenderness ambulating well vaginal bleeding scant hgb 12.2 Results & Data Vital Signs (Past 12 Hours) Vital Signs Temp Pulse Resp BP Pulse Ox O2 Del Method 04/07/24 07:26 36.7 C 92 H 16 111/75 98 Room Air 04/06/24 22:58 36.3 C L 84 18 129/83 99 Room Air
--- NOTE | 2024-04-07 08:56 | Discharge Summary ---
Date of Service April 07, 2024 Admission HPI Per Admitting Provider Patient's been followed in the office for care and delivery. Well dated with a first trimester ultrasound. Due dates 03/31/2024. Has no problems. Has been treated for anemia during her . She was admitted at 40 weeks and 3 days gestation for induction. This was due to being postterm. On admission she was found to have a reactive NST monitor strip revealed good variability with accelerations. On admission she had a vertex presentation. Cervix posterior 1 cm. Cervix 20% soft. Position was floating. Discharge Data Consultations 04/03/24 11:41 Consult Anesthesiology Stat Procedures Performed Operation Date: 04/05/24 14:50 Actual Procedures p Section in LD with delivery of viable female infant at 1621 - Meseret Reid MD Hospital Course (1) Cephalopelvic disproportion due to generally contracted pelvis:
--- NOTE | 2024-04-07 09:01 | Discharge Summary ---
Date of Service April 07, 2024 Admission HPI Per Admitting Provider Patient's been followed in the office for care and delivery. Well dated with a first trimester ultrasound. Due dates 03/31/2024. Has no problems. Has been treated for anemia during her . She was admitted at 40 weeks and 3 days gestation for induction. This was due to being postterm. On admission she was found to have a reactive NST monitor strip revealed good variability with accelerations. On admission she had a vertex presentation. Cervix posterior 1 cm. Cervix 20% soft. Position was floating. Discharge Data Consultations 04/03/24 11:41 Consult Anesthesiology Stat Procedures Performed Operation Date: 04/05/24 14:50 Actual Procedures p Section in LD with delivery of viable female infant at 1621 - Meseret Reid MD [facility] Course (1) Cephalopelvic disproportion due to generally contracted pelvis: Discharge Instructions Patient was admitted for induction at 40 weeks and 5 days gestation. For postterm fetus. Initial exam on the induction revealed the presenting part to be floating cervix to be unfavorable. Over the next several days she had several labor inducing agents. Including p.o. Cytotec and Cervidil tape. Eventually she had epidural with IV Pitocin augmentation. She went to 6 cm. And arrested for over 4 hours. The Pitocin was was raised to the point that she started to have type II decelerations with each contraction had to be cut back. She was diagnosed with arrest of labor secondary to cephalopelvic disproportion. She underwent primary low segment section. She was given 2 different prophylactic antibiotics at the time of . Her preoperative hemoglobin was 13.0 postoperatively hemoglobin was 12.2. She had a smooth postoperative course she remained afebrile throughout her postoperative course she did have a luis dressing placed. And was instructed to return to the office in 1 week for removal of the dressing. At the time of discharge she was ambulating well eating well. Pain was controlled with a combination of nonnarcotic medications and Percocet.
[2024-04-07 09:13] VITALS: BP 105/67; PULSE 89
[2024-04-07] MEDS ORDERED: bisacodyL 10 MG SUPP PR PRN (17:13)
[2024-04-08] MEDS ORDERED: ACETAMINOPHEN 325 MG TAB PO PRN
[2024-04-08] MEDS ORDERED: IBUPROFEN 600 MG TAB PO PRN
== END 2024-04-07 11:46 | disposition home or self-care (01) | DRG 788 ==
LOC: 4S1 10:23 → 4E2 04-05 20:10